=== PATIENT | female | born 1995 | race African-American/Black ===

== ENCOUNTER 2017-06-02 17:45 | Emergency (ER) | payer OTHER ==
[~2017-06-02] VITALS: Ht 154.9 cm; Wt 60.8 kg
[2017-06-02 18:14] LABS: APPEARANCE,URINE SLIGHTLY CLOUDY; BILIRUBIN, URINE NEGATIVE (NEGATIVE); COLOR,URINE YELLOW; GLUCOSE, URINE (UA) NEGATIVE (NEGATIVE); KETONES,URINE NEGATIVE (NEGATIVE); LEUKOCYTE ESTERASE ,URINE 1+ (NEGATIVE); NITRITE,URINE NEGATIVE (NEGATIVE); PH,URINE 7 (4.5-8.0); PROTEIN,URINE NEGATIVE (NEGATIVE); UROBILINOGEN,URINE 4 MG/DL (0.0-1.0)
[2017-06-02] MEDS ORDERED: NITROFURANTOIN100 M2 ORAL (18:28)
[2017-06-02 18:34] VITALS: BP 117/78
[2017-06-02 18:35] VITALS: BP 117/78
--- NOTE | 2017-06-02 18:35 | Emergency Room Report ---
History of Present Illness General Chief Complaint: Pelvic Pain Source: Patient Present Illness HPI This is a 22-year-old female presented after increased lower abdominal pain and cramping. Patient reports having increased cramping for the past few days. She reports having a decreased frequency of stools. She denies any vaginal discharge. She reports having increased the pain after sex. She denies any vaginal discharge. She denies any fever vomiting. Allergies: Coded Allergies: PROCHLORPERAZINE (Verified Allergy, Unknown, 06/02/17) TRAMADOL (Verified Allergy, Unknown, 06/02/17) Uncoded Allergies: TREE NUTS (Allergy, Unknown, 06/02/17) Patient History Past Medical History: see triage record Last Menstrual Period: 05/10/17 Now: No - No control Reviewed Nursing Documentation: PMH: Agreed, PSxH: Agreed Nursing Documentation-PMH Past Medical History: No Stated History Hx Asthma: Yes History Of Psychiatric Problem: Yes - Anxiety Review of Systems All Other Systems: negative except mentioned in HPI Physical Exam Vital Signs Date Time Temp Pulse Resp B/P (MAP) Pulse Ox O2 Delivery O2 Flow Rate FiO2 06/02/17 17:49 97.9 79 16 117/78 97 Room Air General Appearance: well appearing, no apparent distress, alert, GCS 15 Head: normocephalic, atraumatic ENT: hearing grossly normal, normal voice Neck: full range of motion, supple Respiratory: no respiratory distress, speaking full sentences Cardiovascular #1: normal inspection, regular rate, rhythm, no edema Gastrointestinal: normal inspection, normal bowel sounds, non tender, soft Musculoskeletal: normal inspection, no calf tenderness Neurologic: normal inspection, alert, oriented x3, responsive, normal gait Psychiatric: normal inspection, judgement/insight normal, mood/affect normal Skin: no rash Medical Decision Making Diagnostic Impression: Primary Impression: UTI (urinary tract infection) ER Course Patient presented for abdominal pain. Differential diagnoses included ischemic bowel, appendicitis, perforated viscus, abdominal aortic aneurysm, inferior myocardial infarction, viral gastroenteritis Patient has a benign exam and does not appear to require any further imaging or laboratory testing at this time. A urinalysis showed evidence of mild urinary infection. Patient be treated with oral Macrobid. The patient states that she has a appointment with her primary care physician in 2 days. Patient is advised to return if she had any worsening pain persistent vomiting or fever other concerns Labs Test 06/02/17 18:00 Urine Color Yellow Urine Appearance Slightly cloudy Urine pH 7 (4.5-8.0) Urine Specific [place] 1.010 (1.005-1.035) Urine Protein Negative (NEGATIVE) Urine Glucose (UA) Negative (NEGATIVE) Urine Ketones Negative (NEGATIVE) Urine Occult Blood 3+ (NEGATIVE) Urine Nitrite Negative (NEGATIVE) Urine Bilirubin Negative (NEGATIVE) Urine Urobilinogen 4 MG/DL (0.0-1.0) Urine Leukocyte Esterase 1+ (NEGATIVE) Urine RBC 2-4 /HPF (0 - 2) Urine WBC 2-4 /HPF (0 - 2) Urine Squamous Epithelial Cells Many /LPF (NONE/OCC) Urine Bacteria Moderate /HPF (NONE) Urine HCG, Qualitative Negative Last Vital Signs Date Time Temp Pulse Resp B/P (MAP) Pulse Ox O2 Delivery O2 Flow Rate FiO2 06/02/17 17:49 97.9 79 16 117/78 97 Room Air Status: improved Disposition: HOME, SELF-CARE Condition: Stable Scripts Nitrofurantoin Monohyd/M-Cryst* (MACROBID 100 MG*) 100 Mg Capsule 100 MG ORAL EVERY 12 HOURS for 7 Days, CAP Prov: Mendez Rodriguez 06/02/17 Patient Instructions: Urinary Tract Infection Mendez Rodriguez Jun 02, 2017 18:35
== END 2017-06-02 18:35 | disposition home or self-care (01) ==
LOC: EMR 18:05
DX: N39.0 Urinary tract infection, site not specified (principal); F41.9 Anxiety disorder, unspecified; J45.909 Unspecified asthma, uncomplicated; Z88.6 Allergy status to analgesic agent; Z88.8 Allergy status to other drugs, medicaments and biological substances
CPT/HCPCS: 81003; 81025; 87086; 99283